=== PATIENT | male | born 1960 | race Caucasian/White ===

== ENCOUNTER → 2016-05-07 | Outpatient (CLI) | payer BC ==
[~2016-05-07] MED LIST: IOHEXOL 300 MG/ML 100ML VIAL. IV ONE; TRAZ50TA15 PO
--- NOTE | 2016-05-07 15:52 | KCIC ---
PROCEDURE CT chest with contrast. HISTORY Lung nodule, smoker. TECHNIQUE Helical CT imaging of the chest is performed after 90 cc Omnipaque 300 IV contrast. PQRS: One or more the following individualized dose reduction techniques were utilized for the study: 1. Automated exposure control. 2. Adjustment of the mA and/or kV according to patient size. 3. Use of iterative reconstruction technique. COMPARISON CT abdomen and pelvis with contrast, September 23, 2015, [facility]. FINDINGS There is no adenopathy in the chest. Punctate calcified right hilar lymph nodes. Great vessels normal caliber. No dissection or pulmonary embolus. Cardiac size normal, no pericardial effusion. No pleural effusion. The central airways are patent. Punctate calcified granuloma posterior right lower lobe. Minimal pleural parenchymal opacity along the right major fissure is less than on prior study, image 40. There is minimal atelectasis or scarring in the left lower lobe just above the hemidiaphragm. There is no suspicious pulmonary nodule. Stable cortical scarring in the posterior upper pole of the left kidney. Visualized upper abdomen otherwise unremarkable. Bones unremarkable. IMPRESSION No suspicious pulmonary nodule. Electronically signed by: Calin Yi MD (May 07, 2016 15:52:01)
== END | disposition home or self-care (01) ==
LOC: KCIC CT 14:59
PROVIDERS: ATTEND Physician Assistant Medical
DX: R91.1 Solitary pulmonary nodule (principal); F17.200 Nicotine dependence, unspecified, uncomplicated
CPT/HCPCS: 71260; Q9967

== ENCOUNTER 2016-11-19 16:01 | Emergency (ER) | payer BC, OTHER ==
[~2016-11-19] VITALS: Ht 162.6 cm; Wt 81.6 kg
[~2016-11-19 16:01] MED LIST changes: -IOHEXOL 300 MG/ML 100ML VIAL. IV ONE
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
[2016-11-19 17:31] VITALS: BP 144/85
[2016-11-19] MEDS ORDERED: NAPR375T3 PO (19:20)
[2016-11-19] MEDS ORDERED: CYCL10TA2 PO (19:20)
[2016-11-19] MEDS ORDERED: GABA-586 PO (19:20)
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
== END 2016-11-19 19:40 | disposition home or self-care (01) ==
LOC: ER 16:01
DX: R20.2 Paresthesia of skin (principal); R20.0 Anesthesia of skin; M54.2 Cervicalgia; V43.52XA Car driver injured in collision with other type car in traffic accident, initial encounter; Y93.I9 Activity, other involving external motion; Y92.410 Unspecified street and highway as the place of occurrence of the external cause; Y99.8 Other external cause status
CPT/HCPCS: 72100; 72125; 99284-25

== ENCOUNTER → 2017-04-28 | Outpatient (CLI) | payer BC | END | disposition home or self-care (01) | LOC: NM 07:20 | DX: R06.09 Other forms of dyspnea (principal); F17.210 Nicotine dependence, cigarettes, uncomplicated | CPT/HCPCS: 78452; 93017; 96374; 96376; A9500 ==

== ENCOUNTER 2017-07-18 13:09 | Emergency (ER) | payer BC ==
[2017-07-18] MEDS: HYDROcodone/APAP 5/325MG 1 TAB TABLET PO (14:23)
== END 2017-07-18 15:29 | disposition home or self-care (01) ==
LOC: ER 15:29
DX: S60.221A Contusion of right hand, initial encounter (principal); S50.11XA Contusion of right forearm, initial encounter; Y04.0XXA Assault by unarmed brawl or fight, initial encounter; Y93.89 Activity, other specified; Y92.89 Other specified places as the place of occurrence of the external cause; Y99.8 Other external cause status
CPT/HCPCS: 73090; 73130; 99284

== ENCOUNTER 2018-03-26 01:58 | Emergency (ER) | payer BC ==
[~2018-03-26] VITALS: Ht 162.6 cm; Wt 76.7 kg
[~2018-03-26 01:58] MED LIST changes: +CYCL10TA2 PO; +GABA300C18 PO; +NAPR-695 PO; +TRAZ-85 PO; -TRAZ50TA15 PO
[2018-03-26] MEDS ORDERED: IV NORMAL SALINE 1000ML BAG 1,000 ML IV ONE ×2 (02:30→03:45)
[2018-03-26 02:42] LABS: BASO % 0 % (0-3); EOS # 0.3 x10^3/uL (0.0-0.7); EOS % 4 % (0-3); HEMATOCRIT 43.7 % (39.0-53.0); HEMOGLOBIN 15.4 g/dL (13.0-17.5); LYMPH # 2.3 x10^3/uL (1.0-4.8); LYMPH % 27 % (24-48); MEAN CORPUSCULAR HEMOGLOBIN 33 pg (25-35); MEAN CORPUSCULAR HGB CONC 35 g/dL (31-37); MEAN CORPUSCULAR VOLUME 93 fL (79-100); MONO # 0.8 x10^3/uL (0.0-1.1); MONO % 10 % (0-9); NEUT # 5.1 x10^3uL (1.8-7.7); NEUT % 60 % (31-73); PLATELET COUNT 242 x10^3/uL (140-400); RED BLOOD COUNT 4.69 x10^6/uL (4.30-5.70); RED CELL DISTRIBUTION WIDTH 13.1 % (11.5-14.5); WHITE BLOOD COUNT 8.6 x10^3/uL (4.0-11.0)
[2018-03-26] MEDS ORDERED: DIPHTH,PERTUSS(ACELL),TET TOX 0.5 ML DISP.SYRIN. VAX IM ONE (02:45)
[2018-03-26] MEDS ORDERED: LIDOCAINE 1% Multi-Dose 20 ML VIAL. INJ ONE (02:45)
[2018-03-26 02:57] LABS: CALCIUM 9.2 mg/dL (8.5-10.1); CREATININE 0.9 mg/dL (0.7-1.3); GFR 86.7
--- NOTE | 2018-03-26 03:36 | RAD ---
Examination: CT HEAD WO CONTRAST History: SYNCOPE, FALL, HEAD INJURY Comparison/Correlation: MRI brain without and with contrast 02/07/2010 Findings: Axial images of the head were obtained without contrast. Sagittal and coronal reformatted images were provided. Ventricles are normal size. No intracranial hemorrhage, midline shift, or mass effect. No depressed fracture. Patchy opacification of ethmoid air cells, right sphenoid sinus, and exercise is noted. A place of the right frontal sinus. Impression: No intracranial hemorrhage. Chronic paranasal sinusitis. Electronically signed by: Ashu Wilkes MD (03/26/2018 3:32 AM) [facility]
[2018-03-26 04:23] LABS: BILIRUBIN,URINE NEGATIVE (NEG); CLARITY,URINE CLEAR; COLOR,URINE YELLOW; NITRITE,URINE NEGATIVE (NEG); PROTEIN,URINE NEGATIVE (NEG-TRACE); UROBILINOGEN,URINE 0.2 mg/dL (0.2 mg/dL)
--- NOTE | 2018-03-26 04:32 | PHYS DOC ---
Past Medical History Past Medical History: No Pertinent History Past Surgical History: Tonsillectomy Alcohol Use: None Drug Use: None Adult General Chief Complaint Chief Complaint: MULTIPLE COMPLAINTS HPI HPI Patient is a 57 year old male who presents with syncopal episode. Patient was sitting on the toilet. He was having some abdominal cramping. He does have a known history of hemorrhoids and some constipation. He attempted to stand from the toilet when he was completed and had a syncopal episode. He returned to baseline immediately. He then stood up again quickly and had an additional syncopal episode. This time, he struck his face as he fell. The incident was witnessed by his . He did not have any aura prior to the syncope. No chest pain or palpitations. No lightheadedness. He just remembers waking on the floor. According to his , he returned to baseline immediately. There was no tonic-clonic activity. Patient does state he has had similar episodes in the past which were associated with sleep deprivation and over working. He does not have a known history of coronary artery disease. He did not seek medical evaluation previously. He does report that his symptoms improved when he stopped working a second job. He also states he has been working over 50 hours weekly lately and acquiring over time and he suspects this is why he is having syncopal episodes. Review of Systems Review of Systems Constitutional: Denies fever or chills Eyes: Denies change in visual acuity HENT: Denies nasal congestion Respiratory: Denies cough or shortness of breath Cardiovascular: No additional information not addressed in HPI GI: Denies abdominal pain : Denies dysuria or hematuria Musculoskeletal: Denies back pain Integument: Denies rash or skin lesions Neurologic: Denies headache Endocrine: Denies polyuria All other systems were reviewed and found to be within normal limits, except as documented in this note. Current Medications Current Medications Current Medications Medications (Trade) Dose Ordered Sig/Tapan Start Time Stop Time Status Last Admin Dose Admin Diphtheria/ Tetanus/Acell Pertussis (Boostrix) 0.5 ml ONCE ONCE 03/26/18 02:45 03/26/18 02:46 DC 03/26/18 03:04 0.5 ML Lidocaine HCl (Lidocaine 1% 20ml Vial) 20 ml 1X ONCE 03/26/18 02:45 03/26/18 02:46 DC 03/26/18 03:04 20 ML Sodium Chloride 1,000 ml @ 1,000 mls/hr 1X ONCE 03/26/18 03:45 03/26/18 04:44 DC 03/26/18 03:39 1,000 MLS/HR Allergies Allergies Allergies Coded Allergies Type Severity Reaction Last Updated Verified No Known Drug Allergies 09/23/15 No Physical Exam Physical Exam Constitutional: Well developed, well nourished, no acute distress, non-toxic appearance HENT: Normocephalic, atraumatic, bilateral external ears normal, oropharynx moist Eyes: PERRLA, EOMI, conjunctiva normal, no discharge Neck: Normal range of motion, no tenderness, supple Cardiovascular:Heart rate regular rhythm, no murmur Lungs & Thorax: Bilateral breath sounds clear to auscultation Abdomen: Bowel sounds normal, soft, no tenderness Skin: Warm, dry, no erythema, no rash Extremities: No tenderness, no cyanosis, no clubbing, ROM intact, no edema Neurologic: Alert and oriented X 3, normal motor function Psychologic: Affect normal Current Patient Data Vital Signs Vital Signs Date Time Temp Pulse Resp B/P (MAP) Pulse Ox O2 Delivery O2 Flow Rate FiO2 03/26/18 02:00 98.4 81 14 132/79 (96) 98 Room Air 98.4 Lab Values Laboratory Tests Test 03/26/18 02:12 03/26/18 04:15 White Blood Count 8.6 x10^3/uL (4.0-11.0) Red Blood Count 4.69 x10^6/uL (4.30-5.70) Hemoglobin 15.4 g/dL (13.0-17.5) Hematocrit 43.7 % (39.0-53.0) Mean Corpuscular Volume 93 fL (79-100) Mean Corpuscular Hemoglobin 33 pg (25-35) Mean Corpuscular Hemoglobin Concent 35 g/dL (31-37) Red Cell Distribution Width 13.1 % (11.5-14.5) Platelet Count 242 x10^3/uL (140-400) Neutrophils (%) (Auto) 60 % (31-73) Lymphocytes (%) (Auto) 27 % (24-48) Monocytes (%) (Auto) 10 % (0-9) H Eosinophils (%) (Auto) 4 % (0-3) H Basophils (%) (Auto) 0 % (0-3) Neutrophils # (Auto) 5.1 x10^3uL (1.8-7.7) Lymphocytes # (Auto) 2.3 x10^3/uL (1.0-4.8) Monocytes # (Auto) 0.8 x10^3/uL (0.0-1.1) Eosinophils # (Auto) 0.3 x10^3/uL (0.0-0.7) Basophils # (Auto) 0.0 x10^3/uL (0.0-0.2) Sodium Level 140 mmol/L (136-145) Potassium Level 4.0 mmol/L (3.5-5.1) Chloride Level 103 mmol/L (98-107) Carbon Dioxide Level 28 mmol/L (21-32) Anion Gap 9 (6-14) Blood Urea Nitrogen 16 mg/dL (8-26) Creatinine 0.9 mg/dL (0.7-1.3) Estimated GFR (Cockcroft-Gault) 86.7 Glucose Level 110 mg/dL (70-99) H Calcium Level 9.2 mg/dL (8.5-10.1) Troponin I Quantitative < 0.017 ng/mL (0.000-0.055) GA-Cox-P-Type Natriuretic Peptide 20 pg/mL (0-124) Urine Collection Type Unknown Urine Color Yellow Urine Clarity Clear Urine pH 7.0 Urine Specific [place] 1.010 Urine Protein Negative mg/dL (NEG-TRACE) Urine Glucose (UA) Negative mg/dL (NEG) Urine Ketones (Stick) Negative mg/dL (NEG) Urine Blood Negative (NEG) Urine Nitrite Negative (NEG) Urine Bilirubin Negative (NEG) Urine Urobilinogen Dipstick 0.2 mg/dL (0.2 mg/dL) Urine Leukocyte Esterase Negative (NEG) Urine RBC 0 /HPF (0-2) Urine WBC Occ /HPF (0-4) Urine Squamous Epithelial Cells Occ /LPF Urine Bacteria 0 /HPF (0-FEW) Urine Hyaline Casts Few /HPF Urine Mucus Slight /LPF Laboratory Tests 03/26/18 02:12 Laboratory Tests 03/26/18 02:12 EKG EKG There is some diffuse J-point elevation and upward sloping/concavity of the ST segment. There are inverted T waves in aVR. There is no reciprocal changes. The patient does not have chest pain. EKG most likely benign early repolarization. There is no old EKG for comparison. Interpretation Time: 02:10 Radiology/Procedures Radiology/Procedures CT Head: no acute findings. Course & Med Decision Making Course & Med Decision Making Pertinent Labs and Imaging studies reviewed. (See chart for details) Patient was evaluated in the emergency department for a syncopal episode. He had 1 syncopal episode which was followed a meal he by a second. This happened after his helped him to his feet although he did not remember. He perceive the entire episode to be 1. He has a prior history of similar symptoms. In the emergency department, his workup was negative. His troponin was not elevated. His labs were normal. He had a minor laceration on the face which was sutured. See the procedure note below. He received 2 L normal saline. He felt subjectively improved. He was ambulated and had a normal steady gait. Of note, his EKG did show some diffuse ST elevations documented above. No reciprocal changes. T waves are mildly asymmetric. An EKG represents benign early re-pole rather than any acute ischemic change. I did offer the patient admission for observation but he preferred discharge home. In lieu of his normal neurologic exam, negative lab panel, negative head CT, the patient was discharged to home. He was given a tetanus update in the ER prior to discharge. Procedure note: laceration over left zygoma. Area was cleansed with normal saline. Local anesthesia was provided with 1 mL of 1% lidocaine. A total of 4 simple interrupted sutures were placed using 5-0 nylon. Wound edges were well approximated and wound was hemostatic. There were no consultations. Total length of incision was approximately 1 cm. Dragon Disclaimer Dragon Disclaimer This electronic medical record was generated, in whole or in part, using a voice recognition dictation system. Departure Departure Disposition: 01 HOME, SELF-CARE Condition: GOOD Referrals: JENNA HAMLIN MD (PCP) NELY SULLIVAN DO Mar 26, 2018 04:32
[2018-03-26 04:35] LABS: BACTERIA,URINE 0 /HPF (0-FEW); HYALINE CASTS, URINE FEW /HPF; RBC,URINE 0 /HPF (0-2); SQUAMOUS EPITHELIAL CELL,UR OCC /LPF; WBC,URINE OCC /HPF (0-4)
[2018-03-26 05:02] VITALS: BP 125/71
--- NOTE | 2018-03-26 10:57 | EKG ---
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
== END 2018-03-26 05:02 | disposition home or self-care (01) ==
LOC: ER 01:58
DX: S01.81XA Laceration without foreign body of other part of head, initial encounter (principal); R55 Syncope and collapse; Z90.89 Acquired absence of other organs; W18.39XA Other fall on same level, initial encounter; Y93.89 Activity, other specified; Y92.89 Other specified places as the place of occurrence of the external cause; Y99.8 Other external cause status
CPT/HCPCS: 12011; 36415; 70450; 80048; 81001; 83880; 84484; 85025; 90471; 90715; 93005; 96360; 96361; 99284; J7030

== ENCOUNTER 2018-06-16 15:24 | Emergency (ER) | payer BC ==
[~2018-06-16] VITALS: Ht 162.6 cm; Wt 79.4 kg
[~2018-06-16 15:24] MED LIST changes: +TRAZ-118 PO; -TRAZ-85 PO
[2018-06-16] MEDS ORDERED: ASPIRIN 325 MG TABLET PO ONE (15:45)
--- NOTE | 2018-06-16 15:56 | RAD ---
Portable chest, 06/16/2018: HISTORY: Chest pain The heart size and pulmonary vascularity are normal. No pulmonary infiltrate is seen. There is no evidence of pleural fluid. IMPRESSION: No acute cardiopulmonary abnormality is detected. Electronically signed by: Pb Carey MD (06/16/2018 3:53 PM) [facility]
--- NOTE | 2018-06-16 15:57 | PHYS DOC ---
Past Medical History Past Medical History: Anxiety Past Surgical History: Tonsillectomy Alcohol Use: None Drug Use: None Adult General Chief Complaint Chief Complaint: CHEST PAIN HPI HPI Patient is a 57 year old male with a history of anxiety presents to the ED complaining of chest pain since 9:00 this morning. States that he woke up and started having chest pain around 9 AM. States the pain has been constant since then. States the pain is to his left chest. Describes the pain as sharp/ pressure. Rates the pain as 6 out of 10. States that sometimes it is worse and is 4 out of 10. Denies shortness of breath, back pain, headache, neck pain, vision changes, fever, nausea/vomiting, abdominal pain. Review of Systems Review of Systems Constitutional: Denies fever or chills [] Eyes: Denies change in visual acuity, redness, or eye pain [] HENT: Denies nasal congestion or sore throat [] Respiratory: Denies cough or shortness of breath [] Cardiovascular: No additional information not addressed in HPI [] GI: Denies abdominal pain, nausea, vomiting, bloody stools or diarrhea [] : Denies dysuria or hematuria [] Musculoskeletal: Denies back pain or joint pain [] Integument: Denies rash or skin lesions [] Neurologic: Denies headache, focal weakness or sensory changes [] All other systems were reviewed and found to be within normal limits, except as documented in this note. Current Medications Current Medications Current Medications Medications (Trade) Dose Ordered Sig/Tapan Start Time Stop Time Status Last Admin Dose Admin Aspirin (Gavino Aspirin) 325 mg 1X ONCE 06/16/18 15:45 06/16/18 15:46 DC 06/16/18 16:22 325 MG Allergies Allergies Allergies Coded Allergies Type Severity Reaction Last Updated Verified No Known Drug Allergies 09/23/15 No Physical Exam Physical Exam Constitutional: Well developed, well nourished, no acute distress, non-toxic appearance. [] HENT: Normocephalic, atraumatic. Eyes: PERRLA, EOMI, conjunctiva normal, no discharge. [] Neck: Normal range of motion, no tenderness, supple, no stridor. [] Cardiovascular:Heart rate regular rhythm, no murmur [] Lungs & Thorax: Bilateral breath sounds clear to auscultation [] Abdomen: Bowel sounds normal, soft, no tenderness, no masses, no pulsatile masses. [] Skin: Warm, dry, no erythema, no rash. [] Back: No tenderness, no CVA tenderness. [] Extremities: No tenderness, no cyanosis, no clubbing, ROM intact, no edema. [] Neurologic: Alert and oriented X 3, normal motor function, normal sensory function, no focal deficits noted. [] Psychologic: Affect normal, judgement normal, mood normal. [] Current Patient Data Vital Signs Vital Signs Date Time Temp Pulse Resp B/P (MAP) Pulse Ox O2 Delivery O2 Flow Rate FiO2 06/16/18 18:45 72 14 130/74 (92) 96 Room Air 06/16/18 15:41 98.2 98.2 Lab Values Laboratory Tests Test 06/16/18 16:03 06/16/18 18:03 White Blood Count 6.6 x10^3/uL (4.0-11.0) Red Blood Count 4.98 x10^6/uL (4.30-5.70) Hemoglobin 15.5 g/dL (13.0-17.5) Hematocrit 46.1 % (39.0-53.0) Mean Corpuscular Volume 93 fL (79-100) Mean Corpuscular Hemoglobin 31 pg (25-35) Mean Corpuscular Hemoglobin Concent 34 g/dL (31-37) Red Cell Distribution Width 13.1 % (11.5-14.5) Platelet Count 229 x10^3/uL (140-400) Neutrophils (%) (Auto) 59 % (31-73) Lymphocytes (%) (Auto) 29 % (24-48) Monocytes (%) (Auto) 8 % (0-9) Eosinophils (%) (Auto) 4 % (0-3) H Basophils (%) (Auto) 1 % (0-3) Neutrophils # (Auto) 3.9 x10^3uL (1.8-7.7) Lymphocytes # (Auto) 1.9 x10^3/uL (1.0-4.8) Monocytes # (Auto) 0.5 x10^3/uL (0.0-1.1) Eosinophils # (Auto) 0.2 x10^3/uL (0.0-0.7) Basophils # (Auto) 0.0 x10^3/uL (0.0-0.2) Sodium Level 142 mmol/L (136-145) Potassium Level 4.1 mmol/L (3.5-5.1) Chloride Level 103 mmol/L (98-107) Carbon Dioxide Level 28 mmol/L (21-32) Anion Gap 11 (6-14) Blood Urea Nitrogen 9 mg/dL (8-26) Creatinine 0.7 mg/dL (0.7-1.3) Estimated GFR (Cockcroft-Gault) 115.8 BUN/Creatinine Ratio 13 (6-20) Glucose Level 95 mg/dL (70-99) Calcium Level 9.1 mg/dL (8.5-10.1) Magnesium Level 2.0 mg/dL (1.8-2.4) Total Bilirubin 0.4 mg/dL (0.2-1.0) Aspartate Amino Transferase (AST) 24 U/L (15-37) Alanine Aminotransferase (ALT) 39 U/L (16-63) Alkaline Phosphatase 79 U/L (46-116) Creatine Kinase 83 U/L (39-308) Creatine Kinase MB (Mass) 0.7 ng/mL (0.0-3.6) Creatine Kinase MB Relative Index 0.8 % (0-4) Troponin I Quantitative < 0.017 ng/mL (0.000-0.055) < 0.017 ng/mL (0.000-0.055) Total Protein 7.7 g/dL (6.4-8.2) Albumin 4.0 g/dL (3.4-5.0) Albumin/Globulin Ratio 1.1 (1.0-1.7) Lipase 155 U/L (73-393) Laboratory Tests 06/16/18 16:03 Laboratory Tests 06/16/18 16:03 EKG EKG []EKG shows sinus rhythm at 70 BPM. No stemi. no acute changes. Radiology/Procedures Radiology/Procedures []PROCEDURE: PORTABLE CHEST 1V Portable chest, 06/16/2018: HISTORY: Chest pain The heart size and pulmonary vascularity are normal. No pulmonary infiltrate is seen. There is no evidence of pleural fluid. IMPRESSION: No acute cardiopulmonary abnormality is detected. Course & Med Decision Making Course & Med Decision Making Pertinent Labs and Imaging studies reviewed. (See chart for details) []Patient's pain resolved in the ED. States he is feeling well. On re- examination, patient is watching laughing and watching TV. Patient states that he thinks he might just be having anxiety. Discussed case with his PCPs partner , Dr. Cooley. Patient has a heart score of 1. No pain and symptoms at this time. Started over 6 hours ago. Patient had 2 negative troponins in the ED. Dr. Cooley says they will work him up outpatient. Discussed strict return precautions. Provided contact information/education for follow-up. Discussed reasons to return to the ED. Patient understands and agrees with plan. Family at bedside. Dragon Disclaimer Dragon Disclaimer This electronic medical record was generated, in whole or in part, using a voice recognition dictation system. Departure Departure Impression: Primary Impression: Anxiety Disposition: 01 HOME, SELF-CARE Condition: IMPROVED Referrals: JENNA HAMLIN MD (PCP) Patient Instructions: Anxiety and Panic Attacks, Chest Pain (Nonspecific) MIRIAM REYES Jun 16, 2018 15:57
[2018-06-16 16:19] LABS: BASO % 1 % (0-3); EOS # 0.2 x10^3/uL (0.0-0.7); EOS % 4 % (0-3); HEMATOCRIT 46.1 % (39.0-53.0); HEMOGLOBIN 15.5 g/dL (13.0-17.5); LYMPH # 1.9 x10^3/uL (1.0-4.8); LYMPH % 29 % (24-48); MEAN CORPUSCULAR HEMOGLOBIN 31 pg (25-35); MEAN CORPUSCULAR HGB CONC 34 g/dL (31-37); MEAN CORPUSCULAR VOLUME 93 fL (79-100); MONO # 0.5 x10^3/uL (0.0-1.1); MONO % 8 % (0-9); NEUT # 3.9 x10^3uL (1.8-7.7); NEUT % 59 % (31-73); PLATELET COUNT 229 x10^3/uL (140-400); RED BLOOD COUNT 4.98 x10^6/uL (4.30-5.70); RED CELL DISTRIBUTION WIDTH 13.1 % (11.5-14.5); WHITE BLOOD COUNT 6.6 x10^3/uL (4.0-11.0)
[2018-06-16 16:25] LABS: CALCIUM 9.1 mg/dL (8.5-10.1); CREATININE 0.7 mg/dL (0.7-1.3); GFR 115.8; POTASSIUM 4.1 mmol/L (3.5-5.1)
[2018-06-16 16:29] LABS: ALBUMIN/GLOBULIN RATIO 1.1 (1.0-1.7); TOTAL BILIRUBIN 0.4 mg/dL (0.2-1.0); TOTAL PROTEIN 7.7 g/dL (6.4-8.2)
[2018-06-16 18:45] VITALS: BP 130/74
--- NOTE | 2018-06-17 07:47 | EKG ---
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
== END 2018-06-16 18:54 | disposition home or self-care (01) ==
LOC: ER 15:24
DX: F41.9 Anxiety disorder, unspecified (principal); R07.89 Other chest pain; Z90.89 Acquired absence of other organs
CPT/HCPCS: 36415; 71045; 80053; 82550; 82553; 83690; 83735; 84484; 85025; 93005; 99284-25

== ENCOUNTER 2019-06-23 12:55 | Emergency (ER) | payer BC ==
[~2019-06-23] VITALS: Ht 162.6 cm; Wt 75.0 kg
[2019-06-23 14:35] VITALS: BP 169/93
--- NOTE | 2019-06-23 14:35 | PHYS DOC ---
Past Medical History Past Medical History: Anxiety Past Surgical History: Tonsillectomy Smoking Status: Current Every Day Smoker Alcohol Use: None Drug Use: None Adult General Chief Complaint Chief Complaint: MULTIPLE COMPLAINTS [facility] Patient is a 58 year old male who presents with back pain in the thoracic region region of his back that started hurting a week ago after he was lifting stuff. The patient also states he is been having bilateral eye itchiness that started today. He also states he had fatigue and a runny nose. Denies any trauma denies any fever. Complete ROS were reviewed and found to be within normal limits, except as documented in the [facility] Allergies Allergies Allergies Coded Allergies Type Severity Reaction Last Updated Verified No Known Drug Allergies 09/23/15 No Physical Exam Physical Exam Constitutional: Well developed, well nourished, no acute distress, non-toxic appearance. [] HENT: Normocephalic, atraumatic, bilateral external ears normal, oropharynx moist, no oral exudates, nose normal. [] Back: Thoracic tenderness to palpation Neurologic: Alert and oriented X 3, normal motor function, normal sensory fun ction, no focal deficits noted. [] Psychologic: Affect normal, judgement normal, mood normal. [] EKG EKG [] Radiology/Procedures Radiology/Procedures [] Course & Med Decision Making Course & Med Decision Making Pertinent Labs and Imaging studies reviewed. (See chart for details) Discussed with the patient that the back pain is to be evaluated by primary care doctor as I am unable to do anything if he has a slipped disc in the ER. Discussed with him he can follow-up primary care doctor and have a referral to a neurosurgeon if this continues. Discussed with the patient I will give him Toradol in the ER. Also discussed the patient ways to treat musculoskeletal pain such as heating pad. Discussed that due to the fact that he is having fatigue, and runny nose I believe that he needs to self quarantine as he could have the coronavirus and I am unable to rule this out. Discussed with the kailey ent that since he says that he is worried that he has conjunctivitis that discussed that conjunctivitis is 90% viral and the self quarantine will help him from spreading this as well. Dragon Disclaimer Dragon Disclaimer This electronic medical record was generated, in whole or in part, using a voice recognition dictation system. Departure Departure Impression: Primary Impression: Back pain Additional Impressions: Fatigue Runny nose Disposition: 01 HOME, SELF-CARE Condition: STABLE Referrals: ROBERT LEON JR, MD (PCP) Patient Instructions: Viral Syndrome Additional Instructions: Thank you for visiting [facility]. We appreciate you trusting us with your care. If any additional problems come up don't hesitate to return to visit us. Please follow up with your primary care provider so they can plan additional care if needed and know about the problem that you had. If symptoms worsen come back to the Emergency Department. Any concerning symptoms that start such as chest pain, shortness of air, weakness or numbness on one side of the body, running high fevers or any other concerning symptoms return to the ER. You have a viral syndrome which may include symptoms like muscle aches, fevers, chills, runny nose, cough, sneezing, sore throat, vomiting, or diarrhea. One of the potential viruses that you may have is SARS-CoV-2, the virus that causes COVID-19, also known as the Coronavirus. You are just as likely to have a different viral infection such as the common cold, flu, etc. Most patients with the Coronavirus have mild symptoms and recover on their own. Resting, staying hydrated, and sleep from known cases can be helpful. As of todays visit, you are well enough to go home and treat your symptoms with oral fluids and over the counter medications. Coronavirus testing is not performed on most people with mild symptoms who are being discharged from the emergency department. If Coronavirus testing was performed the results will not be available for possibly up to 2-3 days. If your result is positive you will be contacted. Please follow the following precautions at home: 1) Stay home except to get medical care. 2) As advised by the CDC we recommend you stay in your home and minimize contact with other people. We do not want you to spread the infection. 3) Those who are older or have significant medical issues may have more severe symptoms from this infection. We recommend self-isolation,FOR AT LEAST 7 DAYS after your 1st day of symptoms. AFTER you feel better please wait AT LEAST ANOTHER WEEK before returning to regular activities and being around other people! 4) IF you become sicker and have difficulty breathing, chest pain, unable to eat/drink, severe vomiting, diarrhea, or weakness you may need to return to the Emergency Department. 5) You should restrict activities outside your home, except for getting medical care. DO NOT go to work, school, or public areas. Avoid using public transportation, ride sharing, or taxis. 6) Separate yourself from other people in your home. You should use a separate bathroom if possible. 7) Avoid sharing personal household items such as dishes, cups, eating utensils, towels, etc. 8) Clean all high touch surfaces every day (door knobs, counter tops, etc). Use a household cleaning spray or wipe per label instructions. 9) Clean your hands often. Wash your hands with soap and water for at least 20 seconds. 10) Cover your mouth and nose with a tissue when you cough or sneeze. 11) Throw used tissues in a trash can and immediately wash your hands. For additional resources please visit the CDC website or the [place] [facility] ([phone]). Problem Qualifiers Primary Impression: Back pain Back pain location: thoracic back pain Chronicity: acute Back pain laterality: midline Qualified Codes: M54.6 - Pain in thoracic spine Additional Impressions: Fatigue Fatigue type: unspecified Qualified Codes: R53.83 - Other fatigue BRITNEY SMITH APRN Jun 23, 2019 14:35
[2019-06-23] MEDS: KETOROLAC TROMETHAMINE 10 MG TABLET PO STA (14:43)
== END 2019-06-23 14:51 | disposition home or self-care (01) ==
LOC: ER 12:55
DX: M54.6 Pain in thoracic spine (principal); R53.83 Other fatigue; R09.89 Other specified symptoms and signs involving the circulatory and respiratory systems; F41.9 Anxiety disorder, unspecified; F17.200 Nicotine dependence, unspecified, uncomplicated; Z90.89 Acquired absence of other organs
CPT/HCPCS: 99283

== ENCOUNTER → 2020-06-05 | Outpatient (CLI) | payer OTHER ==
--- NOTE | 2020-06-05 17:12 | KCIC ---
EXAM: XR OS CALCIS_LT 2+ VIEWS, XR HAND_RIGHT 2 VIEWS 06/05/2020 2:25 PM CLINICAL INDICATION: Deformity right hand. Growth on fourth finger, tender to touch. Deformity of ri ght heel. Bump near the Achilles tendon insertion for 2 months after injury. COMPARISON: Right hand radiograph 07/18/2017 FINDINGS: Right hand: 3 views were obtained. No acute fracture or osseous lesion. Alignment is normal. Joint sp aces are maintained. There is a new rounded soft tissue mass or soft tissue swelling along the dorsum of the middle phalanx. This measures approximately 1 x 0.7 cm by radiograph. The remaining soft tiss ue is normal. Right calcaneus: 2 views were obtained. No acute fracture. There is a small Achilles insertional enth esophyte of the calcaneus. Mild adjacent soft tissue thickening along the distal Achilles tendon stri pe. Small tibiotalar joint effusion. IMPRESSION: 1. Soft tissue mass along the dorsum of the fourth middle phalanx, new from 2018. No osseous lesion. Ultrasound or MRI could be obtained to further evaluate. 2. Small Achilles insertional enthesophyte and soft tissue thickening along the distal Achilles tendo n stripe, which may reflect tendinopathy. Ultrasound or MRI could be obtained to further evaluate. Electronically signed by: Saskia Keating MD (06/05/2020 5:10 PM) [id number]
== END ==
LOC: KCIC 14:19
PROVIDERS: ATTEND Family Medicine
DX: M21.831 Other specified acquired deformities of right forearm (principal); M76.61 Achilles tendinitis, right leg; M77.31 Calcaneal spur, right foot; M21.961 Unspecified acquired deformity of right lower leg
CPT/HCPCS: 73120; 73650